=== PATIENT | male | born 1935 | race Caucasian/White ===

== ENCOUNTER 2023-08-30 17:43 | Inpatient (IN) | payer MEDICARE, OTHER ==
[~2023-08-30] VITALS: Ht 170.2 cm; Wt 65.3 kg
[2023-08-30] MEDS ORDERED: ENOX40DI SQ (18:34)
[2023-08-30] MEDS ORDERED: ESCI5TAB PO (18:34)
[2023-08-30] MEDS ORDERED: ACET325T53 PO (18:34)
[2023-08-30] MEDS ORDERED: ASPI-1420 PO (18:34)
[2023-08-30] MEDS ORDERED: CARB1TAB39 PO (18:34)
[2023-08-30] MEDS ORDERED: NA P133E RC (18:34)
[2023-08-30] MEDS ORDERED: TAMS-12 PO (18:34)
[2023-08-30] MEDS ORDERED: BISA10SU11 RC (18:34)
[2023-08-30] MEDS ORDERED: ATOR40TA PO (18:34)
[2023-08-30 18:42] LABS: BASOPHILS % (AUTO) 0.3 % (0.0-2.0); EOSINOPHILS # (AUTO) 0.1 K/uL (0.0-0.7); EOSINOPHILS % (AUTO) 1.6 % (0.0-6.0); HEMATOCRIT 39 % (39-51); HEMOGLOBIN 13.1 g/dL (13.5-17.5); LYMPHOCYTES # (AUTO) 1.4 K/uL (0.8-4.8); LYMPHOCYTES % (AUTO) 22.2 % (20.0-44.0); MEAN CORPUSCULAR HEMOGLOBIN 30 PG (26.0-33.0); MEAN CORPUSCULAR HGB CONC 33 g/dl (31.0-36.0); MEAN CORPUSCULAR VOLUME 90 fL (80-96); MONOCYTES # (AUTO) 0.6 K/uL (0.1-1.30); MONOCYTES % (AUTO) 9.8 % (2.0-12.0); NEUTROPHILS # (AUTO) 4.1 K/uL (1.8-8.9); NEUTROPHILS % (AUTO) 66.1 % (43.0-81.0); PLATELET COUNT (AUTO) 139 K/uL (150-450); RED BLOOD CELL COUNT(AUTO) 4.37 MIL/uL (4.5-6.0); RED CELL DISTRIBUTION WIDTH 14.5 % (11.5-15.0); WHITE BLOOD COUNT (AUTO) 6.1 K/uL (4.3-11.0)
[2023-08-30 18:54] LABS: ALANINE AMINOTRANSFERASE 24 U/L (12-78); ALBUMIN 3.4 g/dL (3.4-5.0); ALCOHOL, BLOOD < 3 mg/dL (0-10); ALKALINE PHOSPHATASE 96 U/L (46-116); ASPARTATE AMINOTRANSFERASE 16 U/L (15-37); BILIRUBIN,DIRECT 0.2 mg/dL (0.0-0.2); BILIRUBIN,TOTAL 0.8 mg/dL (0.2-1.0); CARBON DIOXIDE 31 mmol/L (21-32); CHLORIDE 100 mmol/L (98-107); CREATININE 0.8 mg/dL (0.6-1.3); GLUCOSE 99 mg/dL (74-106); POTASSIUM 4.3 mmol/L (3.5-5.1); SODIUM SERUM 135 mmol/L (136-145); TOTAL PROTEIN, SERUM 7.2 g/dL (6.4-8.2); UREA NITROGEN, BLOOD 17 mg/dL (7-18)
[2023-08-30 18:56] LABS: ACETAMINOPHEN <10 ug/ml (10-30); SALICYLATE < 3.0 mg/dL (2.8-20.0)
[2023-08-30 19:07] LABS: CALCIUM, SERUM 8.6 mg/dL (8.5-10.1)
[2023-08-30] MEDS ORDERED: BISACODYL SUPP (10 MG) 10 MG/SUPP.RECT SUPP.RECT RC PRN (19:30)
[2023-08-30] MEDS ORDERED: TAMSULOSIN 0.4 MG CAP.SR.24H PO SCH (22:00)
[2023-08-30] MEDS: ATORVASTATIN 40 MG TABLET PO SCH (22:29)
[2023-08-30] MEDS: TAMSULOSIN 0.4 MG CAP.SR.24H ONE (23:32)
[2023-08-31] MEDS ORDERED: MAG HYDROX/AL HYDROX/SIMETH 30 ML UDC PO PRN
[2023-08-31] MEDS ORDERED: MAGNESIUM HYDROXIDE 30 ML UDC PO PRN
[2023-08-31] MEDS ORDERED: ACETAMINOPHEN 325 MG TABLET PO PRN
[2023-08-31] MEDS: BLOOD SUGAR DIAGNOSTIC 1 EACH STRIP IN ONE (06:28)
[2023-08-31 08:00] VITALS: BP 100/56; TEMP 98.7; O2SAT 96
[2023-08-31] MEDS: ASPIRIN EC 81 MG TABLET.DR PO SCH (08:55)
[2023-08-31] MEDS: CARBIDOPA/LEVA CR 25/100MG 1 TAB.SA PO SCH (08:55)
[2023-08-31] MEDS: ENOXAPARIN SODIUM 40 MG/0.4 ML DISP.SYRIN SQ SCH (08:56)
[2023-08-31] MEDS: Z GUARD REMEDY 4 OZ OINT TP SCH (12:35)
[2023-08-31] MEDS: SERTRALINE HCL 25 MG TABLET PO SCH (13:00)
[2023-08-31] MEDS: LORAZEPAM 0.5 MG TABLET PO PRN (13:45)
[2023-08-31 16:00] VITALS: BP 118/68; TEMP 98.7; O2SAT 97
[2023-08-31 21:08] VITALS: BP 103/67; TEMP 97.6; O2SAT 96
[2023-08-31] MEDS: QUETIAPINE FUMARATE 25 MG TABLET PO SCH (21:40)
[2023-09-01 08:00] VITALS: BP 122/89; TEMP 97.8; O2SAT 97
[2023-09-01 08:23] LABS: ALBUMIN 2.8 g/dL (3.4-5.0); BILIRUBIN,TOTAL 0.8 mg/dL (0.2-1.0); CALCIUM, SERUM 8.5 mg/dL (8.5-10.1); CHOLESTEROL 134 mg/dL (<200); CREATININE 0.8 mg/dL (0.6-1.3); HDL CHOLESTEROL 51 mg/dL (40-60); LDL 72 mg/dL (0-99); POTASSIUM 3.8 mmol/L (3.5-5.1); TOTAL PROTEIN, SERUM 6.2 g/dL (6.4-8.2); TRIGLYCERIDES 35 mg/dL (30-150)
[2023-09-01 08:39] LABS: CREATININE 0.8 mg/dL (0.6-1.3)
[2023-09-01 16:00] VITALS: BP 111/65; TEMP 97.9; O2SAT 96
[2023-09-01 21:02] VITALS: BP 127/71; TEMP 98; O2SAT 96
[2023-09-02 08:00] VITALS: BP 99/50; TEMP 97.4; O2SAT 95
[2023-09-02 16:00] VITALS: BP 102/64; TEMP 97.7; O2SAT 98
[2023-09-02 20:00] VITALS: BP 101/72; TEMP 98.1; O2SAT 95
[2023-09-03 08:00] VITALS: BP 126/90; TEMP 98; O2SAT 95
[2023-09-03 16:00] VITALS: BP 116/68; TEMP 97.9; O2SAT 98
[2023-09-03 20:00] VITALS: BP 129/84; TEMP 98.5; O2SAT 97
[2023-09-04 08:00] VITALS: BP 119/63; TEMP 97.9; O2SAT 94
[2023-09-04 16:00] VITALS: BP 122/67; TEMP 97.9; O2SAT 95
[2023-09-04 20:00] VITALS: BP 124/69; TEMP 97.6; O2SAT 96
[2023-09-05 08:00] VITALS: BP 123/84; TEMP 97.7; O2SAT 92
[2023-09-05] MEDS: ENSURE ENLIVE 237 ML LIQUID (VANILLA) PO SCH (08:41)
[2023-09-05 16:00] VITALS: BP 101/52; TEMP 97.8; O2SAT 96
[2023-09-05 20:20] VITALS: BP 105/80; TEMP 98; O2SAT 96
[2023-09-05] MEDS: Z GUARD REMEDY 4 OZ OINT TP SCH (21:51)
[2023-09-06 08:00] VITALS: BP 105/58; TEMP 97.9; O2SAT 97
[2023-09-06 16:00] VITALS: BP 104/76; TEMP 97.7; O2SAT 98
[2023-09-06 20:00] VITALS: BP 117/84; TEMP 98.7; O2SAT 96
[2023-09-06 20:47] VITALS: BP 117/84; TEMP 98.1; O2SAT 96
[2023-09-06] MEDS: TEMAZEPAM 7.5 MG CAPSULE PO PRN (21:35)
[2023-09-07 08:00] VITALS: BP 104/64; TEMP 98.1; O2SAT 98
== END 2023-09-07 13:30 | DRG 885 ==
LOC: ER 18:05 → GPS 20:59
PROVIDERS: ADMIT Psychiatry & Neurology Psychosomatic Medicine; ATTEND Nurse Practitioner Acute Care
DX: F29 Unspecified psychosis not due to a substance or known physiological condition (principal); U07.1 COVID-19; G93.41 Metabolic encephalopathy; F02.83 Dementia in other diseases classified elsewhere, unspecified severity, with mood disturbance; N40.0 Benign prostatic hyperplasia without lower urinary tract symptoms; E78.5 Hyperlipidemia, unspecified; I25.10 Atherosclerotic heart disease of native coronary artery without angina pectoris; G20.A1 Parkinson's disease without dyskinesia, without mention of fluctuations; Z91.199 Patient's noncompliance with other medical treatment and regimen due to unspecified reason
CPT/HCPCS: 36415; 80048-TC; 80053-TC; 80061-TC; 80076-TC; 82565-TC; 82962-TC; 85025-TC; 87081-TC; 97110-TC; 97116-TC; 97530-TC; G0480; J1650